=== PATIENT | male | born 1970 | race Caucasian/White ===

== ENCOUNTER 2020-05-11 07:45 | Day surgery (SDC) | payer BC ==
--- NOTE | 2020-05-10 11:42 | PCM.PREANE ---
<Holli Reaves J - Last Filed: 05/10/20 11:40> Preanesthetic Assessment - Procedure Proposed Procedure: Diagnostic Colonoscopy - Anesthesia/Transfusion/Family Hx Anesthesia History: No Prior Anesthesia Family History of Anesthesia Reaction: No Transfusion History: No Prior Transfusion(s) Intubation History: Unknown - Review of Systems Pulmonary: No Symptoms (asthma) Cardiovascular: No Symptoms (Elevated cholesterol) Gastrointestinal: No Symptoms (History of mild diverticulosis), Constipation Other: Reports: Sinus Problem (allergic rhinitis) - Physical Assessment NPO Status Date: 05/10/20 Vital Signs: HR: Sat: Temp: Resp: B/P: ASA Class: 2 Mental Status: Alert & Oriented x3 - Anesthesia Plan Pre-Op Medication Ordered: None - Acknowledgements Anesthesia Type Planned: MAC Pt an Appropriate Candidate for the Planned Anesthesia: Yes Alternatives and Risks of Anesthesia Discussed w Pt/Guardian: Yes Pt/Guardian Understands and Agrees with Anesthesia Plan: Yes <Ana Muñoz M - Last Filed: 05/11/20 08:49> Preanesthetic Assessment - Anesthesia/Transfusion/Family Hx Anesthesia History: Prior Anesthesia Without Reaction Family History of Anesthesia Reaction: No Transfusion History: No Prior Transfusion(s) - Review of Systems General: No Symptoms Pulmonary: No Symptoms Cardiovascular: No Symptoms Gastrointestinal: No Symptoms, Constipation Neurological: No Symptoms Other: Reports: Sinus Problem - Physical Assessment NPO Status Date: 05/11/20 NPO Status Time: 04:00 Height: 5 ft 9 in Weight: 85 kg ASA Class: 2 Mental Status: Alert & Oriented x3 Airway Class: Mallampati = 1 Dentition: Reports: Normal Dentition Thyro-Mental Finger Breadths: 3 Mouth Opening Finger Breadths: 3 ROM/Head Extension: Full Lungs: Clear to Auscultation, Normal Respiratory Effort Cardiovascular: Regular Rate, Regular Rhythm - Blood Blood Available: No - Anesthesia Plan Pre-Op Medication Ordered: None - Acknowledgements Anesthesia Type Planned: MAC Pt an Appropriate Candidate for the Planned Anesthesia: Yes Alternatives and Risks of Anesthesia Discussed w Pt/Guardian: Yes Pt/Guardian Understands and Agrees with Anesthesia Plan: Yes PreAnesthesia Questionnaire Cardiovascular History: Reports: High Cholesterol (was on meds but not any more) Respiratory History: Reports: Asthma (seasonal-) Gastrointestinal History: Reports: Chronic Constipation (on and off) Oncologic (Cancer) History: Reports: None - Past Surgical History GI Surgical History: Reports: Colonoscopy - SUBSTANCE USE Smoking Status *Q: Never Smoker Tobacco Use Within Last Twelve Months: No Second Hand Smoke Exposure: No Days Per Week of Alcohol Use: 1 Recreational Drug Use History: No - CURRENT (IN HOUSE) MEDS Current Meds: Current Medications Lactated Ringer's (Ringers, Lactated) 1,000 mls @ 125 mls/hr IV ASDIRECTED FREDDIE Stop: 05/11/20 23:00 Lidocaine/Sodium Bicarbonate (Buffered Lidocaine 1% In Ns 8.4%) 0.25 ml IDERM ONETIME PRN PRN Reason: Prior to IV Start Stop: 05/11/20 18:00 Sodium Chloride (Saline Flush) 10 ml FLUSH ASDIRECTED PRN PRN Reason: Keep Vein Open Stop: 05/11/20 18:00 Discontinued Medications Fentanyl (Sublimaze) Confirm Administered Dose 100 mcg .ROUTE .STK-MED ONE Stop: 05/11/20 06:49 Lidocaine HCl (Lidocaine 1%) Confirm Administered Dose 4 ml .ROUTE .STK-MED ONE Stop: 05/11/20 06:49 Propofol (Diprivan 20 Ml) Confirm Administered Dose 200 mg .ROUTE .STK-MED ONE Stop: 05/11/20 06:49
[~2020-05-11 07:45] MED LIST: Lactated Ringers 1,000 ML IV SCH; Lidocaine 1% 2 ML SDV ONE; Lidocaine 1%/Sod Bicarbonate in NS 8.4% 1 ML Syringe IDERM PRN; Propofol 200 MG/20 ML SDV ONE; Sodium Chloride 0.9% 10 ML Syringe FLUSH PRN; fentaNYL 100 MCG/2 ML SDV ONE
[2020-05-11] MEDS ORDERED: Propofol 200 MG/20 ML SDV ONE (09:12)
--- NOTE | 2020-05-11 09:42 | PCM48HPAN ---
Post Anesthesia Note - EVALUATION WITHIN 48HRS OF ANESTHETIC Vital Signs in Normal Range: Yes Patient Participated in Evaluation: Yes Respiratory Function Stable: Yes Airway Patent: Yes Cardiovascular Function Stable: Yes Hydration Status Stable: Yes Pain Control Satisfactory: Yes Nausea and Vomiting Control Satisfactory: Yes Mental Status Recovered: Yes Vital Signs: Last Vital Signs Temp 35.9 C L 05/11/20 08:00 Pulse 64 05/11/20 08:00 Resp 16 05/11/20 08:00 BP 134/74 05/11/20 08:00 Pulse Ox 97 05/11/20 08:00
--- NOTE | 2020-05-11 09:43 | PCM.PRNOTE ---
- Free Text/Narrative Note: Date: 05/11/2020 Procedure: diagnostic colonoscopy Indication: rectal bleeding Endoscopist: Wally Walton MD Findings: Cecum reached with colonoscope. Excellent prep. No polyps identified. No significant diverticular disease. Tortuous colon. Minor internal hemorrhoids. Significant external hemorrhoidal disease. No anal fissure. Detailed Report: The patient was taken to the endoscopy suite and placed in left lateral decubitus position. Time out was performed and monitored anesthesia care was initiated. Visual inspection of the anus revealed significant external hemorrhoids. Digital rectal exam was unremarkable; not able to induce prolapse of any internal hemorrhoids. The lubricated colonoscope was then inserted and advanced all the way to the cecum. The ileocecal valve and appendiceal orifice were visualized. The prep was excellent. On slow withdrawal of the scope, mucosal surfaces were carefully inspected. No polyps were identified. On retroflexion within the rectum, minor internal hemorrhoidal prominence was noted. Air was suctioned prior to removal of the scope. The patient tolerated the procedure well.
== END 2020-05-11 10:25 | disposition home or self-care (01) ==
LOC: JD.SDS 07:45
PROVIDERS: ATTEND Surgery
DX: K64.4 Residual hemorrhoidal skin tags (principal); K64.8 Other hemorrhoids; K62.5 Hemorrhage of anus and rectum; J45.909 Unspecified asthma, uncomplicated; Q43.8 Other specified congenital malformations of intestine; E78.00 Pure hypercholesterolemia, unspecified
CPT/HCPCS: J2001; J2704; J3010; J7120

== ENCOUNTER 2023-04-15 09:41 | Day surgery (SDC) | payer BC ==
[~2023-04-15 09:41] MED LIST changes: -Lidocaine 1% 2 ML SDV ONE; -Lidocaine 1%/Sod Bicarbonate in NS 8.4% 1 ML Syringe IDERM PRN; -Propofol 200 MG/20 ML SDV ONE; +Sodium Chloride 0.9% 10 ML Syringe FLUSH SCH; -fentaNYL 100 MCG/2 ML SDV ONE
[2023-04-15] MEDS ORDERED: Lidocaine 1% 8 ML ONE (11:16)
[2023-04-15] MEDS ORDERED: Benzocaine 20% Topical Spray UD ONE (11:17)
[2023-04-15] MEDS ORDERED: Propofol 200 MG/20 ML SDV ONE ×3 (11:17→11:47)
== END 2023-04-15 13:00 | disposition home or self-care (01) ==
LOC: JD.SDS 09:41
PROVIDERS: ATTEND Surgery
DX: K64.4 Residual hemorrhoidal skin tags (principal); K64.8 Other hemorrhoids; K57.30 Diverticulosis of large intestine without perforation or abscess without bleeding; D64.9 Anemia, unspecified; K62.5 Hemorrhage of anus and rectum; J45.909 Unspecified asthma, uncomplicated; Z79.899 Other long term (current) drug therapy
CPT/HCPCS: 00813; A9270-GY; J2704; J3490; J7120